=== PATIENT | male | born 1970 | race Caucasian/White ===

== ENCOUNTER 2018-12-10 00:51 | Inpatient (IN) | payer BC ==
[~2018-12-10] VITALS: Ht 177.8 cm; Wt 84.9 kg
[2018-12-10 00:56] VITALS: Ht 177.8 cm; Wt 84.9 kg
--- NOTE | 2018-12-10 01:04 | NUR ---
PATIENT AAOX4 BIB [facility] WITH PT STATING C/O SOB THAT STARTED ABOUT AN HOUR AGO. PT STS THAT WHEN HE WENT TO GO TO BED HE NOTICED HE COULDNT BREATH. HE TRIED SITTING UP AND CHANGING POSITIONS WITHOUT RELIEF. PATIENT DENIES HX OF ANY RESPIRATORY AILMENTS BUT STS HE DOES SMOKE A HALF OF PACK OF CIGARETTES EVERY DAY. WHEEZING NOTED IN UPPER BILATERAL LUNGS, LOWER LUNG BASES CLEAR. SKIN WARM, DRY AND INTACT. PATIENT PLACED ON MONITORS FOR FURTHER OBSERVATION.
[2018-12-10 01:27] LABS: CALCIUM 8.9 mg/dL (8.5-10.1); CARBON DIOXIDE 18.7 mmol/L (21-32); CHLORIDE SERUM 104 mmol/L (98-107); CREATININE SERUM 0.8 mg/dL (0.7-1.3); GFR1 > 60 mL/min; GLUCOSE SERUM 99 mg/dL (74-106); POTASSIUM SERUM 3.4 mmol/L (3.5-5.1); SODIUM SERUM 141 mmol/L (136-145)
[2018-12-10 01:30] LABS: BASOPHIL % 0.8 % (0-2); PLATELET COUNT 306 x10^3mcL (130-400)
[2018-12-10 01:44] LABS: ALBUMIN 3.5 g/dL (3.4-5.0); ALKALINE PHOSPHATASE 97 U/L (46-116); ALT/SGPT 17 U/L (16-63); AST/SGOT 17 U/L (15-37); FREE T4 1.16 ng/dL (0.76-1.46); LIPASE 129 IU/L (73-393); TOTAL PROTEIN, SERUM 7.7 g/dL (6.4-8.2)
[2018-12-10 01:56] LABS: microscopic required? NO
[2018-12-10 01:57] LABS: RED CELL DISTRIBUTION WIDTH 14.9 % (11.5-14.5)
[2018-12-10 02:19] LABS: UA SPECIFIC GRAVITY <=1.005 (1.005-1.035); urine erythrocyte NEGATIVE (NEGATIVE)
--- NOTE | 2018-12-10 02:27 | NUR ---
PATIENT SLEEPING ON GURNEY- EASILY AROUSABLE. VSS - BREATHING EVEN AND UNLABORED. WILL CONTINUE TO MONITOR.
[2018-12-10 02:39] LABS: AMPHETAMINE QUAL UR NONE DETECTED (See below)
[2018-12-10 04:00] VITALS: BP 116/66
[2018-12-10 04:03] LABS: MAGNESIUM 1.8 mg/dL (1.8-2.4); PHOSPHOROUS 3.3 mg/dL (2.5-4.9)
[2018-12-10 04:05] LABS: CHOLESTEROL/HDL RATIO 2.7
--- NOTE | 2018-12-10 04:27 | NUR ---
RECEIVED PT FROM ED VIA [employer]. KEPT COMFORTABLE IN BED. A/O X4. ADMITTED WITH COMPLAINTS OF SOB. DENIES HEADACHE/DIZZINESS. ON ROOM AIR, SAT. 97%. LUNG SOUNDS CLEAR, RESP. TREATMENTS GIVEN IN ER. DENIES SOB AT THIS TIME. AFEBRILE AND VITAL SIGNS STABLE. ON TELE. #8, MONITOR SHOWS SR, DENIES CP OR ANY DISCOMFORT AT THIS TIME. HL TO LT HAND , INTACT AND PATENT. ABD. SOFT, NON DISTENDED, BS ACTIVE, NO N/V NOTED. SKIN WARM AND DRY TO TOUCH, INTACT. NO EDEMA NOTED. AMBULATORY. ORIENTED TO ROOM AND SURROUNDINGS. BED IN LOW POSITION. CALL LIGHT WITHIN REACH. CALL LIGHT WITHIN REACH. WILL CONTINUE TO MONITOR.
--- NOTE | 2018-12-10 05:00 | NUR ---
STARTED ON IVF, NS AT 100ML/HR , INFUSING VIA LT HAND. WILL CONTINUE TO MONITOR.
[2018-12-10 05:52] VITALS: BP 116/66
--- NOTE | 2018-12-10 05:58 | NUR ---
ASLEEP, APPEARS COMFORTABLE. EASILY AROUSABLE. RESP. EVEN AND UNLABORED. ON ROOM AIR, NO ACUTE DISTRESS NOTED. SR ON THE MONITOR. IVF INTACT AND INFUSING WELL, SITE CLEAR . CALL LIGHT WITHIN REACH. WILL CONTINUE TO MONITOR.
[2018-12-10 07:41] VITALS: BP 113/65
[2018-12-10 09:01] LABS: BASOPHIL % 0.7 % (0-2); PLATELET COUNT 268 x10^3mcL (130-400)
[2018-12-10 09:02] LABS: RED CELL DISTRIBUTION WIDTH 14.9 % (11.5-14.5)
--- NOTE | 2018-12-10 09:10 | NUR ---
RECIEVED PATIENT ALERT AND ORIENTED TIMES FOUR. WITH INTERMITTANT SOB NTOED AND STARTE DYESTERDAY. DENIES SMOKING MORE THAN NORMAL AND WAS BARBAQUING AND WATCHING FIREWORKS. HE THOUGHT MAYBE THE SMOKE IN THE AIR CAUSED HIS SYMPTOMS. NOTED THE LUNGS WITH SOME FINE RALES AND INTERMITANT SLIGHT WHEEZING. HE STATE SHE FEELS CONGESTED AND A COUGH THAT IS NON [id number] AT THIS TIME. IV INTACT AND GAVE HIS MEDICATIONS ORDERED. PATIENT HAS BEEN ON BREATHING TREATMENTS AND IS AMBULATORY TO AND FROM THE RESTROOM. HE HAS TOLERATED HIS DIET AND FLUIDS WELL. VITALS AT THIS TIME ARE STABLE AT 98.0, 86, 18, 113/65, 76 MAP, 96% ON ROOM AIR.
[2018-12-10 09:34] LABS: CALCIUM 8.7 mg/dL (8.5-10.1); CARBON DIOXIDE 27.5 mmol/L (21-32); CHLORIDE SERUM 106 mmol/L (98-107); CREATININE SERUM 0.8 mg/dL (0.7-1.3); GFR1 > 60 mL/min; GLUCOSE SERUM 113 mg/dL (74-106); MAGNESIUM 1.7 mg/dL (1.8-2.4); PHOSPHOROUS 3.6 mg/dL (2.5-4.9); POTASSIUM SERUM 4.2 mmol/L (3.5-5.1); SODIUM SERUM 142 mmol/L (136-145)
[2018-12-10 12:34] VITALS: BP 104/62
[2018-12-10] MEDS ORDERED: GOOD NEIGHBOR600 MG PO (12:51)
[2018-12-10] MEDS ORDERED: PROVENTIL0.09 MG/A1 INH (13:08)
[2018-12-10 13:36] VITALS: BP 104/62
--- NOTE | 2018-12-10 14:07 | NUR ---
PAGED THE RESIDENT FOR PRESCRIPTION. PATIENT IS FOR DISCHARGE AND TO TAKE ALBUTEROL INHALER AND GUIATUSSION PO ORDERED. WENT OVER THE TEACHING ON THE BRONCHITIS AND THE INDICATION FOR THE MEDICATION ORDER. AWAITING THE PRESCRIPTION. WILL REMOVE THE IV AND THE TELE INDICATED.
--- NOTE | 2018-12-10 14:39 | NUR ---
PATIENT RECEIVED PRESCRIPTION AND PATIENT SIGNED PAPERWORK AND IV AND TELE REMOVED.
[2018-12-10 16:24] VITALS: BP 101/66
--- NOTE | 2018-12-10 16:49 | NUR ---
PATIENT RESTING ON AND OFF AND NO ACUTE DISTRESS AT THIS TIME. PATIENT IS WAITING FOR FAMILY TO INSOLE DOUBLER. HAD A BREATHING TREATMENT THIS AFTERNOON AND TOLERATED WELL.
== END 2018-12-10 17:03 | disposition home or self-care (01) | DRG 205 ==
LOC: ED 00:51 → DU 02:58
PROVIDERS: Emergency Medicine; ADMIT Internal Medicine
DX: M94.0 Chondrocostal junction syndrome [Tietze] (principal); J96.01 Acute respiratory failure with hypoxia; E87.2 Acidosis; J45.901 Unspecified asthma with (acute) exacerbation; F17.210 Nicotine dependence, cigarettes, uncomplicated; E87.6 Hypokalemia; E78.5 Hyperlipidemia, unspecified; K21.9 Gastro-esophageal reflux disease without esophagitis; Z82.49 Family history of ischemic heart disease and other diseases of the circulatory system; Z82.5 Family history of asthma and other chronic lower respiratory diseases
CPT/HCPCS: 36600; 83880; 84439; 85378; 94150; G0378; J7030; J7620; J7633